=== PATIENT | male | born 1980 | race Caucasian/White ===

== ENCOUNTER 2016-11-14 17:12 | Emergency (ER) | payer MEDICAID, OTHER ==
[~2016-11-14] VITALS: Ht 182.9 cm; Wt 83.9 kg
[~2016-11-14 17:12] MED LIST: AMPH30TA3 PO; BACL20TA PO; BUTABARBITAL PO; DIVA500T2 PO; LANS30CA10 PO
[2016-11-14] MEDS ORDERED: HYDROCODONE/APAP 10-325 MG TABLET PO ONE ×2 (17:45→18:00)
[2016-11-14] MEDS ORDERED: HYDROCODONE/APAP 10-325 MG TABLET ONE ×2 (17:48→18:00)
--- NOTE | 2016-11-14 18:52 | NUR ---
Pt back from CT, NAD noted.
--- NOTE | 2016-11-14 20:07 | NUR ---
Patient discharged to home in stable conditon. Written and verbal after care instructions given. Patient verbalizes understanding of instructions. walked out of ER with steady gait. No distress noted
[2016-11-14 20:08] VITALS: BP 128/79
== END 2016-11-14 20:09 | disposition home or self-care (01) ==
LOC: ER 17:16
DX: S52.121A Displaced fracture of head of right radius, initial encounter for closed fracture (principal); S40.011A Contusion of right shoulder, initial encounter; K21.9 Gastro-esophageal reflux disease without esophagitis; F17.200 Nicotine dependence, unspecified, uncomplicated; F12.10 Cannabis abuse, uncomplicated; Z96.641 Presence of right artificial hip joint; V87.8XXA Person injured in other specified noncollision transport accidents involving motor vehicle (traffic), initial encounter; Y93.89 Activity, other specified; Y99.8 Other external cause status; Y92.89 Other specified places as the place of occurrence of the external cause
CPT/HCPCS: 71010; 73030; 73080; 73200; 73502; A4663

== ENCOUNTER 2016-12-03 21:50 | Emergency (ER) | payer MEDICAID ==
[~2016-12-03] VITALS: Ht 182.9 cm; Wt 83.9 kg
[2016-12-03] MEDS ORDERED: HYDROMORPHONE 1 MG/1 ML DISP.SYRIN IM ONE (22:15)
[2016-12-03] MEDS ORDERED: CEFAZOLIN 1 G VIAL IM ONE (22:15)
[2016-12-03] MEDS ORDERED: ONDANSETRON ODT 4 MG TAB.RAPDIS SL ONE (22:15)
[2016-12-03] MEDS ORDERED: LEVOFLOXACIN 750 MG TABLET PO ONE (22:15)
[2016-12-03] MEDS ORDERED: HYDROMORPHONE 1 MG/1 ML DISP.SYRIN ONE (22:33)
[2016-12-03] MEDS ORDERED: ONDANSETRON HCL 4 MG TABLET ONE (22:33)
[2016-12-03] MEDS ORDERED: CEFAZOLIN 1 G VIAL ONE (22:33)
[2016-12-03] MEDS ORDERED: LEVOFLOXACIN 750 MG TABLET ONE (22:34)
--- NOTE | 2016-12-03 22:35 | NUR ---
pt to room. Pt c/o severe pain to right foot. Sts he stepped on two nails earlier today at work and continued to work is here bc unable to tolerate pain any longer. Pt seen by . Xrays obtained. Pt medicated for pain, will monitor for effects of medication. Pt given ABT injection, will monitor for any adverse reactions. Pt resting in position of comfort for self.
--- NOTE | 2016-12-03 23:31 | NUR ---
Wound cleaned, simple drsg applied. Pt sts pain improving. Pt given crutch instructions and demonstrated understanding. Pt stable for discharge per MD. Pt given ACI. Pt verbalized understanding of dc instructions. Pt wheeled out of er via w/c with ride home.
[2016-12-03 23:36] VITALS: BP 142/89
== END 2016-12-03 23:37 | disposition home or self-care (01) ==
LOC: ER 21:50
DX: S91.331A Puncture wound without foreign body, right foot, initial encounter (principal); K21.9 Gastro-esophageal reflux disease without esophagitis; F12.10 Cannabis abuse, uncomplicated; F17.200 Nicotine dependence, unspecified, uncomplicated; X58.XXXA Exposure to other specified factors, initial encounter; Y93.89 Activity, other specified; Y99.8 Other external cause status; Y92.89 Other specified places as the place of occurrence of the external cause
CPT/HCPCS: 73630; 96372 ×2; 99284; 99406; A4217; A4663; J0690; J1170; Q0162

== ENCOUNTER 2019-01-30 10:08 | Emergency (ER) | payer OTHER ==
[~2019-01-30] VITALS: Ht 182.9 cm; Wt 79.4 kg
[~2019-01-30 10:08] MED LIST changes: -LANS30CA10 PO; +LANS30CA54 PO
--- NOTE | 2019-01-30 10:17 | NUR ---
SARA CRUZ AT BEDSIDE FOR MSE.
[2019-01-30] MEDS ORDERED: KETOROLAC TROMETHAMINE 30 MG INJ IM ONE (11:00)
[2019-01-30] MEDS ORDERED: KETOROLAC TROMETHAMINE 30 MG INJ ONE (11:09)
[2019-01-30 11:21] VITALS: BP 112/86
--- NOTE | 2019-01-30 11:21 | NUR ---
Patient discharged to home in stable conditon. Written and verbal after care instructions given. Patient verbalizes understanding of instructions. ALL BELONGINGS W/ PT. PT SELF-AMBULATED W/O DIFFICULTY.
== END 2019-01-30 11:27 | disposition home or self-care (01) ==
LOC: ER 10:08
DX: S60.946A Unspecified superficial injury of right little finger, initial encounter (principal); L08.9 Local infection of the skin and subcutaneous tissue, unspecified; K21.9 Gastro-esophageal reflux disease without esophagitis; F17.290 Nicotine dependence, other tobacco product, uncomplicated; F12.10 Cannabis abuse, uncomplicated; Z79.899 Other long term (current) drug therapy; W22.01XA Walked into wall, initial encounter; Y93.89 Activity, other specified; Y92.89 Other specified places as the place of occurrence of the external cause; Y99.8 Other external cause status
CPT/HCPCS: 29125; 73130; 96372; 99283; 99406; J1885; A4663